=== PATIENT | female | born 1975 | race Caucasian/White ===

== ENCOUNTER 2016-12-28 17:16 | Emergency (ER) | payer SELFPAY ==
[~2016-12-28] VITALS: Ht 160 cm; Wt 63.5 kg
[2016-12-28 17:55] VITALS: BP 110/68
[2016-12-28] MEDS ORDERED: KEFLEX500 MG ORAL (19:34)
[2016-12-28 19:49] VITALS: BP 113/71
--- NOTE | 2016-12-28 22:24 | Emergency Room Report ---
History of Present Illness General Chief Complaint: Pain Source: Patient Present Illness HPI 41-year-old female presents ED complaining of left finger pain and swelling. States 3 days ago she smashed her left middle finger in a garage door. Denies any other injuries. No pain and swelling to left distal middle finger. Noted some oozing and discharge initially but none at this time. Denies fevers or chills. States pain is a 10 out of 10, throbbing, nonradiating. No aggravating or relieving factors. Denies any other associated symptoms Allergies: Coded Allergies: ERYTHROMYCIN BASE (Verified Allergy, Unknown, 10/06/16) Patient History Past Medical History: none Past Surgical History: none Pertinent Family History: none Social History: Denies: alcohol use, drug use, smoking Last Menstrual Period: 12/24/16 Now: No Immunizations: UTD Reviewed Nursing Documentation: PMH: Agreed, PSxH: Agreed Nursing Documentation-PMH Past Medical History: No History, Except For Review of Systems All Other Systems: negative except mentioned in HPI Physical Exam Vital Signs Date Time Temp Pulse Resp B/P Pulse Ox O2 Delivery O2 Flow Rate FiO2 12/28/16 17:44 98.1 91 14 110/68 100 Room Air Sp02 EP Interpretation: reviewed, normal General Appearance: no apparent distress, alert, GCS 15, non-toxic Head: normocephalic Eyes: bilateral eye PERRL, bilateral eye normal inspection ENT: normal ENT inspection Neck: normal inspection Respiratory: normal inspection Cardiovascular #1: normal inspection Gastrointestinal: normal inspection Rectal: deferred Genitourinary: no CVA tenderness Musculoskeletal: tender - swelling/tenderness to distal aspect of L middle finger. nailbed intact. no erythema/induration Neurologic: alert, oriented x3, responsive, motor strength/tone normal, sensory intact, speech normal Psychiatric: normal inspection Skin: normal inspection Lymphatic: normal inspection Medical Decision Making Diagnostic Impression: Primary Impression: Finger nail contusion Qualified Codes: S60.10XA - Contusion of unspecified finger with damage to nail, initial encounter ER Course Hospital Course 41-year-old female presents ED with left middle finger pain and swelling status post smashed in garage door Differential diagnoses include: Fracture, dislocation, sprain, contusion Clinical course Patient placed on stretcher. After initial history and physical, I ordered Xrays of L hand Xrays prelim read shows no acute fracture/dislocation. No evidence of subungual hematoma. Given history of oozing and discharged we will treat with antibiotic Diagnosis - finger nail contusion Stable and discharged to home with prescription for keflex. warm compresses. Followup with PMD. Return to ED if symptoms recur or worsen Other X-Ray Diagnostic Results Other X-Ray Diagnostic Results : X-Ray Ordered: left hand EP Interpretation: Yes Findings: no fractures, no dislocation, no soft tissue swelling Number of Views: 3 Last Vital Signs Date Time Temp Pulse Resp B/P Pulse Ox O2 Delivery O2 Flow Rate FiO2 12/28/16 19:49 98.0 93 15 113/71 100 Room Air Status: improved Disposition: HOME, SELF-CARE Condition: Stable Scripts Cephalexin* (KEFLEX*) 500 Mg Capsule 500 MG ORAL Q6H, #28 CAP 0 Refills Prov: CLAUDIA GUZMÁN M.D. 12/28/16 Patient Instructions: Contusion, [id number] CLAUDIA GUZMÁN M.D. Dec 28, 2016 22:24
--- NOTE | 2016-12-29 10:01 | Diagnostic Imaging Report ---
Indications: Left hand pain Technique: 3 views left hand Findings: Comparison: None Linear lucency traverses the fifth distal phalangeal tuft. Overlying soft tissues are unremarkable in appearance. There is significant contour irregularity of the distal ulna, distal pole of scaphoid, triquetrum, and pisiform. Soft tissues overlying the ulnar aspect of the wrist are asymmetrically swollen. Scapho-trapezoid joint narrowed with marginal osteophyte formation. IMPRESSION: Suggestion of fracture of fifth distal phalangeal tuft, acuity indeterminate Contour irregularities of the distal ulna and multiple proximal carpal bones with overlying soft tissue swelling. Findings are nonspecific. Diagnostic possibilities include prior trauma, inflammatory arthritis, deposition disease. Superimposed degenerative arthropathy scaphotrapezoid joint.
== END 2016-12-28 19:50 | disposition home or self-care (01) ==
LOC: EMR 18:21
DX: S60.10XA Contusion of unspecified finger with damage to nail, initial encounter (principal); Z91.048 Other nonmedicinal substance allergy status; X58.XXXA Exposure to other specified factors, initial encounter; Y93.9 Activity, unspecified; Y92.9 Unspecified place or not applicable
CPT/HCPCS: 99283

== ENCOUNTER 2017-05-22 20:26 | Emergency (ER) | payer SELFPAY ==
[~2017-05-22] VITALS: Ht 160 cm; Wt 69.9 kg
[~2017-05-22 20:26] MED LIST: KEFLEX500 MG ORAL
[2017-05-22] MEDS ORDERED: NKM (20:49)
[2017-05-22] MEDS ORDERED: TYLENOL325 MG ORAL (22:32)
[2017-05-22 22:43] VITALS: BP 118/76
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
== END 2017-05-22 22:50 | disposition home or self-care (01) ==
LOC: EMR 22:50
DX: S69.92XA Unspecified injury of left wrist, hand and finger(s), initial encounter (principal); S09.90XA Unspecified injury of head, initial encounter; Z88.1 Allergy status to other antibiotic agents; V13.4XXA Pedal cycle driver injured in collision with car, pick-up truck or van in traffic accident, initial encounter; Y92.410 Unspecified street and highway as the place of occurrence of the external cause
CPT/HCPCS: 29280; 70450; 99284